=== PATIENT | female | born 1965 | race Caucasian/White ===

== ENCOUNTER 2021-12-31 07:57 | Outpatient (CLI) | payer BC, SELFPAY ==
--- NOTE | 2021-12-31 08:47 | ECG_ITS ---
Measurements Intervals [place] Rate: 53 P: 9 GA: 162 QRS: -13 QRSD: 97 T: 15 QT: 408 QTc: 385 Interpretive Statements SINUS BRADYCARDIA INCOMPLETE RIGHT BUNDLE BRANCH BLOCK BASELINE ARTIFACT- I, II, III, AVR, AVL, AVF BORDERLINE ECG Electronically Signed On 12-31-2021 9:42:45 TOOL GRINDER OPERATOR by Phillip Wallis D.O.
[2021-12-31 09:09] LABS: Basophils Percent Auto 0.5 % (0.2-1.2); Eosinophils Absolute Auto 0.1 K/mm3 (0-0.3); Eosinophils Percent Auto 1.4 % (0-4.4); Hemoglobin 12.2 g/dL (12.0-15.0); Immature Granulocyte Absolute 0.01 K/mm3 (0.00-0.031); Immature Granulocyte Percent A 0.2 % (0-0.5); Lymphocytes Absolute Auto 1.94 K/mm3 (0.9-3.2); Lymphocytes Percent Auto 46.4 % (18.3-44.2); Mean Corpuscular Hemoglobin 30.8 pg (26-34); Mean Corpuscular Volume 93.4 fl (80-100); Mean Platelet Volume 9.2 fl (7.4-10.4); Monocytes Absolute Auto 0.3 K/mm3 (0.1-0.6); Monocytes Percent Auto 7.7 % (2.6-8.5); Neutrophils Absolute Auto 1.8 K/mm3 (1.3-6.7); Neutrophils Percent Auto 43.8 % (45.5-73.1); Platelet Count Result 237 k/mm3 (150-375); Red Blood Count 3.96 M/mm3 (4.2-5.4); Red Cell Distribution Width 12.7 % (11.5-14.5); White Blood Count 4.2 K/mm3 (4.5-10.0)
[2021-12-31 09:19] LABS: Prothrombin Time 12.7 Seconds (11.1-14.7)
[2021-12-31 09:20] LABS: Partial Thromboplastin Time 24.6 SECONDS (22.3-36.8)
[2021-12-31 09:22] LABS: Alanine Aminotransferase 18 U/L (4-35); Albumin Level 4.5 g/dL (3.5-5.1); Alkaline Phosphatase 69 U/L (38-126); Anion Gap 4 mmol/L (8-16); Aspartate Amino Transferase 26 U/L (14-36); Bilirubin,Total 0.8 mg/dL (0.2-1.3); Blood Urea Nitrogen 8 mg/dL (7-17); Calcium 9.1 mg/dL (8.4-10.2); Carbon Dioxide 31 mmol/L (22-30); Chloride 105 mmol/L (98-107); Estimated Glomerular Filt Rate > 60; Glucose 102 mg/dL (65-110); Potassium 5.1 mmol/L (3.4-5.0); Sodium 140 mmol/L (137-145)
== END 2021-12-31 07:58 | disposition home or self-care (01) ==
LOC: ANHSURGERY 08:06
PROVIDERS: Visit Provider Urology
DX: Z01.818 Encounter for other preprocedural examination (principal); N81.4 Uterovaginal prolapse, unspecified
CPT/HCPCS: 36415; 80053; 85025; 85610; 85730; 86850; 86900; 86901; 87086; 87088; 93005

== ENCOUNTER 2022-01-13 01:34 | Day surgery (SDC) | payer BC, SELFPAY ==
[2021-12-31 07:54] VITALS: BMI 23.5
--- NOTE | 2021-12-31 07:54 | PC.NURSE ---
Report to the Outpatient Waiting Room, entrance under the green pavilion located off [facility], at time _0600_ on date _01/13/22_. OR Time: _0730_. - You will be asked a series of questions to screen for COVID 19 for your protection. - A mask is required within the hospital. - One visitor allowed at this time. Preoperative COVID Testing Requirements: NONE Patients may have clear liquids (water, carbonated beverages, clear teas, apple juice) until 3 hours prior to surgery (0430 AM) with a maximum of 20 ounces. - No food from midnight until time of surgery Take the following medications with a SIP of water the morning of surgery: _NONE__ Medications to discontinue per DR. TORRES - _JUICE PLUSE, CALCIUM 7 DAYS PRIOR TO SURGERY, LAST DOSE TO BE TAKEN ON 01/05/22__ Please no make-up, nail swedish, hairspray, perfume, deodorant, or body powder the day of surgery. No jewelry (including any body piercings) or valuables the day of surgery, leave them at home. Please take a shower or bath the night before, or the morning of, surgery with an antibacterial soap. Wear comfortable, loose fitting clothing. - Jewelry must be removed prior to entering the operating room. Rings and piercings that are not removed may be cut off. - The hospital will not accept responsibility for valuables. - Please leave all valuables, including medications, at home the day of surgery. If you are going home after surgery, a licensed warehouse delivery driver must drive you home. - NO public transportation without another adult. - We recommend that an adult stay with you for 24 hours following discharge. - We also recommend that you do not drive, make important decision, drink alcoholic beverages, or take any drugs that were not prescribed by your health care provider for at least 24 hours after your discharge time. Follow any additional instructions given to you from your surgeons. Instructions given to ___PT and asked if any additional questions and then verbalized understanding. Patient advised to call surgeon office or pre surgery nurse liaisonTHIAGO [phone] if any additional questions.
[2021-12-31 08:23] VITALS: BP 140/80; PULSE 60; RESP 18; TEMP 37; O2SAT 98
--- NOTE | 2022-01-05 19:35 | PM.IMHP ---
H&P: HPI History of Present Illness Date/Time: 01/05/22 19:35 56 yo with Uterine prolapse. NO cindi Chief Complaint: Uterine prolapse Review of Systems Review of Systems: All systems reviewed & are unremarkable except as noted in HPI and below PMFSH Family History Family History Grandparent Family history of coronary artery disease, Onset Age: 60 Mother Familial Alzheimer's disease of late onset Other Family history of malignant neoplasm of ovary Social History Social History Smoking status: Never smoker Second hand tobacco smoke exposure: No Alcohol intake: current Alcohol use details: STATES RARELY MAYBE 6 DRINKS/YEAR Substance use: never Substance use type: does not use Spiritual care concerns: No Meds Home Medications and Allergies Home Medications Medication Instructions Recorded Confirmed Type calcium 2 tab-cap HS 12/31/21 12/31/21 History nutritional supplement-fiber 4 ea HS 12/31/21 12/31/21 History [Juice Plus] Allergies Allergy/AdvReac Type Severity Reaction Status Date / Time No Known Allergies Allergy Mild Unverified 12/31/21 08:18 Exam Narrative: NAD A+O x3 [place] at 0 Assessment and Plan Assessment and plan (1) Uterine prolapse: Code(s): N81.4 - Uterovaginal prolapse, unspecified Status: Acute Assessment and Plan: robotic Sacral Colpopexy
--- NOTE | 2022-01-08 08:04 | PM.IMHP ---
H&P: HPI History of Present Illness Date/Time: 01/08/22 08:04 56-year-old female admitted for robotic supracervical hysterectomy and bilateral salpingectomy and possible bilateral salpingo-oophorectomy secondary to pain and prolapse. She had large children does not do a lot of heavy lifting but notice a bulging could see it. She consulted with Dr. Ortiz and he is scheduled to undertake sacral colpopexy 17 easily. Risks and benefits reviewed in great detail removal of the ovaries will be considered once inside. Chief Complaint: Uterine prolapse Review of Systems Review of Systems: All systems reviewed & are unremarkable except as noted in HPI and below [facility] Family History Family History Grandparent Family history of coronary artery disease, Onset Age: 60 Mother Familial Alzheimer's disease of late onset Other Family history of malignant neoplasm of ovary Social History Social History Smoking status: Never smoker Second hand tobacco smoke exposure: No Alcohol intake: current Alcohol use details: STATES RARELY MAYBE 6 DRINKS/YEAR Substance use: never Substance use type: does not use Spiritual care concerns: No Meds Home Medications and Allergies Home Medications Medication Instructions Recorded Confirmed Type calcium 2 tab-cap HS 12/31/21 12/31/21 History nutritional supplement-fiber 4 ea 12/31/21 12/31/21 History [Juice Plus] Allergies Allergy/AdvReac Type Severity Reaction Status Date / Time No Known Allergies Allergy Mild Unverified 12/31/21 08:18 Exam Const: General: no acute distress Eyes: General: appearance normal, both eyes and all related structures Neck: Neck: supple and no JVD Thyroid: thyroid normal Resp: Effort & Inspection: normal respiratory effort Auscultation: clear to auscultation bilaterally Cardio: Rate: regular rate Rhythm: regular rhythm GI: Inspection: non-distended GI Palp: Yes Soft to palpation, No Tenderness to palpation present (GI) and No Guarding due to palpation present (GI) Auscultation: normal bowel sounds : General: Yes bladder normal to palpation External Female Exam: normal external appearance Speculum Exam - Vagina: normal appearance of the vagina, normal vaginal discharge and No vaginal bleeding Speculum Exam - Cervix: normal appearance of the cervix (Second to third-degree prolapse is present.) and nontender Bimanual exam- vagina & uterus: bladder normal to palpation, No Cervical tenderness present and enlarged Bimanual Exam- Adnexa, other: normal adnexae OB/external & speculum: No vaginal bleeding Skin: General skin exam: no rashes or lesions noted Extrem: General: normal to inspection and no edema Psych: Mental Status: mental status grossly normal Affect: normal affect Assessment and Plan Additional Plan Impression: Uterine prolapse Plan: Robotic assisted supracervical hysterectomy with bilateral salpingectomies. Possible bilateral cyst salpingo-oophorectomy. Dr. Ortiz will proceed with repair of the pelvic prolapse
[2022-01-13] VITALS (15 sets, daily range): BP systolic 99–136; BP diastolic 51–89; PULSE 49–68; RESP 12–16; TEMP 36–36.3; O2SAT 94–100
--- NOTE | 2022-01-13 06:13 | WPDHPUPDATE1 ---
History and Physical Update Update Date/Time: 01/13/22 06:13 History and Physical has been reviewed, including an updated exam of the patient. There are NO changes in the patient's condition. Risks, benefits, and alternatives have been discussed and questions answered. Patient agrees to proceed with procedure.
--- NOTE | 2022-01-13 07:07 | P.PNAN_ITS ---
Anes - Initial Pre Proc Eval Procedure: Operation Date: 01/13/22 07:30 Proposed Procedures p Robotic Sacrocolpopexy - Justin Ortiz MD s Urethral Sling - Justin Ortiz MD s Robotic Assisted Supracervical Hysterectomy With Bilateral Salpingectomy, Possible Bilateral Salpingo-Oophorectomy - Lei Jarquin MD Date/Time: 01/13/22 07:07 Surgeon: Justin Ortiz MD Pre Op Diagnosis: Incom Uterovaginal prolapse, midline cystocele OAB Patient Data Age: 56 Gender: F Height: 1.68 m Weight: 66.3 kg Last Vital Signs Temp 37.0 C 12/31/21 08:23 Pulse 60 12/31/21 08:23 Resp 18 12/31/21 08:23 BP 140/80 12/31/21 08:23 Pulse Ox 98 12/31/21 08:23 Allergies Allergy/AdvReac Type Severity Reaction Status Date / Time No Known Allergies Allergy Mild Unverified 01/13/22 06:02 Home Medications Medication Instructions Recorded Confirmed Type calcium 2 tab-cap HS 12/31/21 01/13/22 History nutritional supplement-fiber 4 ea HS 12/31/21 01/13/22 History [Juice Plus] Patient hx anesthesia problems: none Family hx anesthesia problems: none Results Review: All pre-operative results and documents have been reviewed as part of the pre-operative evaluation. [facility] Surgical History Surgical History (Updated 01/13/22 @ 07:09 by Simon Bar DO) History of tubal ligation Family History Family History Grandparent Family history of coronary artery disease, Onset Age: 60 Mother Familial Alzheimer's disease of late onset Other Family history of malignant neoplasm of ovary Social History Social History Smoking status: Never smoker Second hand tobacco smoke exposure: No Alcohol intake: current Alcohol use details: STATES RARELY MAYBE 6 DRINKS/YEAR Substance use: never Substance use type: does not use Living arrangements: with family Spiritual care concerns: No Anes - Eval Final PreProcedure Day of Procedure 01/13/22 07:07 Patient weight: normal Heart: regular rate and rhythm Lungs: clear to auscultation and normal air movement Airway: Mallampati scale Neurological: alert and oriented Last oral intake: >/= 8 hours ASA classification: II Emergent: no Anesthetic plan: proceed Anesthesia type and monitoring: general ETT and standard monitoring Results Review: All pre-operative results and documents have been reviewed as part of the pre-operative evaluation. Informed Consent: The patient's anesthetic plan and its attendant risks and benefits were discussed with the patient/family/POA. Questions were solicited and answers provided to the satisfaction of the patient/family/POA.
--- NOTE | 2022-01-13 07:08 | WPDHPUPDATE1 ---
History and Physical Update Update Date/Time: 01/13/22 07:08 History and Physical has been reviewed, including an updated exam of the patient. There are NO changes in the patient's condition. Risks, benefits, and alternatives have been discussed and questions answered. Patient agrees to proceed with procedure.
[2022-01-13] MEDS: LACTATED RINGERS 1,000 ML 30 ML IV CONT ×2 (07:27→09:57)
[2022-01-13] MEDS: metroNIDAZOLE 500 MG/ISO 100ML 500 MG/100 ML BAG 100 MG IVPB (07:29)
[2022-01-13] MEDS: ceFAZolin 2 GM/D5W 50 ML 2 GM/50 ML BAG IVPB (07:42)
--- NOTE | 2022-01-13 08:20 | P.OP_ITS ---
Procedure Note - Detailed Date of Procedure 01/13/22 Pre-op Diagnosis Incom Uterovaginal prolapse, midline cystocele OAB Post-op Diagnosis same Procedure Performed Robotic supracervical hysterectomy salpingo-oophorectomy Surgeon Lei Jarquin MD Anesthesia general Indications Is a 56-year-old female with significant uterine prolapse Findings Small prolapsed uterus normal-appearing ovaries and tubes bilaterally Description of Procedure Patient was prepped and draped in the normal sterile fashion placed in the dorsal lithotomy position. Under excellent general trach anesthesia weighted speculum placed on posterior burned vagina. Anterior lip of the cervix grasped with a single-tooth tenaculum and the Ortiz's cannula inserted attached to the single-tooth to be used later for uterine manipulation. A 16 Turkmen catheter was placed in the bladder drained clear urine. The weighted speculum was removed and Dr. Ortiz proceeded to dock the robot. Please see his operative report for full details Once the robot had been docked. The left round ligament was grasped, burned, cut. Anteriorly bladder flap was formed by sharply dissecting the peritoneum and reflecting the bladder caudally from the uterus to the opposite round ligament which was clamped, burned, cut. Next the left infundibulopelvic structure was skeletonized clamped, burned, cut and brought to level of previously cut round ligament. In like fashion the infundibulopelvic structure on the right was skeletonized. This was clamped, burned, cut and brought to the level of previously cut round ligament. Next the left cardinal broad ligaments were serially skeletonized hugging the cervix and uterus clamping burning cutting until the uterine vessels could be seen on the left these were individually clamped, burned, cut. In like fashion the cardinal broad ligaments on the right were serially skeletonized hugging the cervix and uterus clamping burning cutting until the uterine vessels could be seen on the right these were individually clamped, burned, cut. At that point excellent he blanching was noted. A supracervical incision made and the uterus ovaries and tubes placed in an Endo-Catch. Blood loss at that point was [id number]. Dr. Hunter took over from there for the sacral colpopexy. Please refer to his operative report for full details blood loss to this point was 5cc and there were no complications up to this point Estimated Blood Loss 5 Drains No Packing No Pathology yes Complications No immediate complications Condition stable Disposition no change
--- NOTE | 2022-01-13 08:44 | SUR.OPER ---
sacrocolpopexy mesh [facility] Lot [id number], EXP 2023-12-16
--- NOTE | 2022-01-13 09:31 | SUR.OPER ---
uterus 33.0gm
--- NOTE | 2022-01-13 09:46 | W.PM.PROC2 ---
Procedure Note - Detailed Date of Procedure 01/13/22 Pre-op Diagnosis Incom Uterovaginal prolapse Post-op Diagnosis same Procedure Performed Robotic assisted laparoscopic sacral colpopexy Cystoscopy Surgeon Justin Ortiz MD Anesthesia general Indications This is a woman with uterine prolapse she has no stress incontinence by either history or urinary. She desires surgical correction. She is here for the above. She understands risks of bleeding, infection, diskitis, damage to surrounding organs, bowel injury, bowel obstruction, mesh related complications including exposure and extrusion, postoperative voiding dysfunction including incontinence and retention, risk of de Nathalie stress incontinence, need for ancillary procedures, dyspareunia, recurrence of prolapse, and other perioperative intraoperative postoperative complications. She agrees to proceed. Findings See below Description of Procedure She was correctly identified. Informed consent obtained. She from the operating room. She was given general anesthesia. She was given appropriate perioperative antibiotics. She was placed a low lithotomy position. Pressure points were padded. A time-out performed. I marked out the skin 3 fingerbreadths cephalad to the umbilicus. I anesthetized the skin. I incised the skin. I dissected down to the fascia. I grasped the fascia with Chica clamps. I entered the fascia sharply in a Feliz type technique. I placed sutures for later fascial closure. I placed a midline trocar. I examined the abdomen. There is no sign of any injury. Under direct vision I placed 2 additional trocars in the right upper quadrant and 2 additional trocars the left upper quadrant. She was placed in steep Trendelenburg. The robot was docked. Her solutions consultant completed their portion of the procedure. Please see that operative report for details. I then sat at the console. The Sizer in the vagina created plane on the anterior and posterior vaginal wall. I took great care not to injure the vagina, bladder, or rectum. I introduced the mesh into the abdomen. I sewed the anterior leaflet of mesh on the anterior vaginal wall. I sewed the posterior leaflet of mesh on the posterior vaginal wall. This was done with several sutures of 2 0 [place]-Mar[place]. I reflected the colon laterally. I opened the posterior peritoneum over the sacral promontory. I carried this into the cul-de-sac. I freed up the edges for later retroperitonealization. I located the anterior longitudinal ligament the sacrum. I cleaned off all fatty tissues. I then tensioned my mesh appropriately. I did a vaginal exam the bedside. I assured prolapse reduction without undue tension. I then sewed the proximal leaflet of mesh onto the anterior longitudinal ligament of the sacrum with several sutures of 2 0 [place]-Marco. I then used a 2 0 Monocryl to completely and meticulously retroperitonealized all mesh. I allowed the colon to go back to its normal anatomic location. There is no sign of any impingement. The specimen was then removed. All ports removed. Additional sutures were placed and the Fascial sutures were tied down. Skin was closed with Monocryl and surgical glue. I then performed cystoscopy. There was excellent prolapse support without undue tension. On cystoscopy There was no tumors or surgical artifact. Both ureters were seen to excrete clear yellow urine. There is no surgical artifact in the bladder or urethra. I cut the excess sling material. Close incision with glue. She was awakened and transferred to PACU in stable condition. Implants Sacral colpopexy mesh Estimated Blood Loss 5 Packing No Pathology none sent Complications No immediate complications Condition stable Disposition PACU
[2022-01-13] MEDS: fentaNYL CITRATE INJ (*CRX) 100 MCG/2 ML VIAL 25 MCG IV PUSH ×4 (10:11→10:40)
[2022-01-13] MEDS: oxyCODONE HCL (*CRX) 5 MG TAB IR PO (13:06)
== END 2022-01-13 14:10 | disposition home or self-care (01) ==
PROVIDERS: Obstetrics & Gynecology; PCP Physician Assistant; Visit Provider Urology
PROC: (CPT 57425; principal; 2022-01-13 07:30)
PROC: 0UT94ZZ Resection of Uterus, Percutaneous Endoscopic Approach (ICD-10-PCS; CPT 57425; 2022-01-13 07:30)
DX: N81.2 Incomplete uterovaginal prolapse (principal); N32.81 Overactive bladder; N73.6 Female pelvic peritoneal adhesions (postinfective)
CPT/HCPCS: 57425; 58542; S2900 ×2; 88307; A9270; C1781; C9290; J0690; J1100; J1170; J2250; J2405; J2704; J3010; J7030; J7120

== ENCOUNTER 2023-10-15 01:13 | Day surgery (SDC) | payer BC, SELFPAY ==
[2023-09-30 08:25] VITALS: BMI 22.6
--- NOTE | 2023-10-13 12:46 | SUR.PREOP ---
Patient called regarding upcoming procedure. Reviewed preop instructions, appointment times, and procedure prep.
[2023-10-15 06:20] VITALS: BP 108/79; PULSE 84; RESP 16; TEMP 36; O2SAT 100; BMI 22.1
[2023-10-15] MEDS: LACTATED RINGERS 1,000 ML 150 ML IV CONT (06:39)
--- NOTE | 2023-10-15 07:31 | PM.IMHP ---
H&P: HPI History of Present Illness Date/Time: 10/15/23 07:31 Chief Complaint: Screening for colorectal cancer Narrative: This is a 58-year-old woman who presents for colonoscopy. She has never had a colonoscopy before. She denies family history of colon cancer. She denies any hematochezia or melena. Review of Systems Review of Systems: All systems reviewed & are unremarkable except as noted in HPI and below Constitutional: Constitutional: Denies chills, Denies fever(s), Denies headache(s) and Denies weight loss Eyes: Eyes: Denies change in vision ENT: Denies dizziness, Denies headache(s), Denies neck mass and Denies throat swelling Cardiovascular: Cardiovascular: Denies chest pain, Denies lightheadedness and Denies dyspnea Respiratory: Respiratory: Denies cough, Denies dyspnea and Denies wheezing Gastrointestinal: Gastrointestinal: Denies abdominal pain, Denies change in bowel habits, Denies nausea and Denies vomiting Genitourinary: Genitourinary: Denies hematuria and Denies dysuria Musculoskeletal: Musculoskeletal: Reports as per HPI Integumentary/Breasts: Skin/Breast: Reports as per HPI Neurologic: Denies dizziness and Denies headache(s) Allergic/Immunologic: Allergic/Immunologic: Denies throat swelling and Denies wheezing [facility] Surgical History Surgical History (Updated 01/13/22 @ 07:09 by Simon Bar DO) History of tubal ligation Family History Family History Grandparent Family history of coronary artery disease, Onset Age: 60 Mother Familial Alzheimer's disease of late onset Other Family history of malignant neoplasm of ovary Social History Social History Smoking status: Never smoker Second hand tobacco smoke exposure: No Alcohol intake: current Alcohol use details: rare occasions Substance use: never Substance use type: does not use Living arrangements: with family Spiritual care concerns: No Meds Home Medications and Allergies Home Medications Medication Instructions Recorded Confirmed Type calcium 2 tab-cap PO HS 12/31/21 10/15/23 History nutritional supplement-fiber oral 4 ea PO HS 12/31/21 10/15/23 History liquid Allergies Allergy/AdvReac Type Severity Reaction Status Date / Time No Known Allergies Allergy Mild Verified 10/15/23 06:29 Vital Signs Vital Signs - 24 hr 10/15/23 06:20 Temperature 36.0 C L Pulse Rate 84 Respiratory Rate 16 Blood Pressure 108/79 Pulse Oximetry 100 Oxygen Delivery Room Air Exam Const: General: no acute distress and alert Orientation/consciousness: patient oriented x3 HENMT: Head: normocephalic and atraumatic Ears: hearing grossly normal bilaterally Face/Nose/Sinus: Normal nares present Mouth: Yes Normal oral and palatal mucosa present Eyes: Periorbital: periorbital findings normal Sclera: sclerae normal EOM: EOMs intact bilaterally Neck: Neck: normal visual inspection, no lymphadenopathy and trachea midline Chest: Chest palpation & inspection: normal inspection of the chest Resp: Effort & Inspection: normal respiratory effort Auscultation: clear to auscultation bilaterally Cardio: Jugular venous distension: no JVD Rate: regular rate Rhythm: regular rhythm Heart sounds: S1 normal heart sound present and S2 normal heart sound present Peripheral pulses: Peripheral pulses 2+ throughout GI: Inspection: normal to inspection GI Palp: Yes Soft to palpation, No Tenderness to palpation present (GI), No Guarding due to palpation present (GI) and No Rebound tenderness present Percussion: Yes normal to percussion Auscultation: normal bowel sounds : General: Yes no CVA tenderness Back/Spine/Pelvis: Back: no CVA tenderness Neuro: General: patient oriented x3, no focal motor deficits and CN's II-XI intact bilaterally Cognition (Neuro): normal cognition Speec
--- NOTE | 2023-10-15 07:45 | P.PNAN_ITS ---
Anes - Initial Pre Proc Eval Procedure: Operation Date: 10/15/23 07:30 Proposed Procedures p Screening Colonoscopy - Magno Taveras DO Date/Time: 10/15/23 07:45 Surgeon: Magno Taveras DO Pre Op Diagnosis: neoplasm screening Patient Data Age: 58 Gender: F Height: 1.68 m Weight: 62.2 kg Last Vital Signs Temp 96.8 F L 10/15/23 06:20 Pulse 84 10/15/23 06:20 Resp 16 10/15/23 06:20 BP 108/79 10/15/23 06:20 Pulse Ox 100 10/15/23 06:20 O2 Del Method Room Air 10/15/23 06:20 Allergies Allergy/AdvReac Type Severity Reaction Status Date / Time No Known Allergies Allergy Mild Verified 10/15/23 06:29 Home Medications Medication Instructions Recorded Confirmed Type calcium 2 tab-cap PO HS 12/31/21 10/15/23 History nutritional supplement-fiber oral 4 ea PO HS 12/31/21 10/15/23 History liquid Patient hx anesthesia problems: none Family hx anesthesia problems: none Results Review: All pre-operative results and documents have been reviewed as part of the pre- operative evaluation. [facility] Surgical History Surgical History (Updated 01/13/22 @ 07:09 by Simon Bar DO) History of tubal ligation Family History Family History Grandparent Family history of coronary artery disease, Onset Age: 60 Mother Familial Alzheimer's disease of late onset Other Family history of malignant neoplasm of ovary Social History Social History Smoking status: Never smoker Second hand tobacco smoke exposure: No Alcohol intake: current Alcohol use details: rare occasions Substance use: never Substance use type: does not use Living arrangements: with family Spiritual care concerns: No Anes - Eval Final PreProcedure Day of Procedure 10/15/23 07:45 Patient weight: overweight Heart: regular rate and rhythm Lungs: clear to auscultation Airway: Mallampati scale class II Neurological: alert and oriented Last oral intake: >/= 8 hours ASA classification: II Emergent: no Anesthetic plan: proceed Anesthesia type and monitoring: general GIVS and standard monitoring Results Review: All pre-operative results and documents have been reviewed as part of the pre- operative evaluation. Informed Consent: The patient's anesthetic plan and its attendant risks and benefits were discussed with the patient/family/POA. Questions were solicited and answers provided to the satisfaction of the patient/family/POA.
[2023-10-15 07:53] VITALS: BP 84/56; PULSE 67; RESP 16; O2SAT 95
[2023-10-15 08:03] VITALS: BP 97/57; PULSE 68; RESP 17; O2SAT 98
[2023-10-15 08:13] VITALS: BP 106/73; PULSE 59; RESP 19; O2SAT 100
== END 2023-10-15 08:25 | disposition home or self-care (01) ==
PROVIDERS: PCP Physician Assistant; Visit Provider Surgery
PROC: 0DJD8ZZ Inspection of Lower Intestinal Tract, Via Natural or Artificial Opening Endoscopic (ICD-10-PCS; CPT 45378; principal; 2023-10-15 07:30)
DX: Z12.11 Encounter for screening for malignant neoplasm of colon (principal); K57.30 Diverticulosis of large intestine without perforation or abscess without bleeding; Z82.49 Family history of ischemic heart disease and other diseases of the circulatory system; Z80.41 Family history of malignant neoplasm of ovary
CPT/HCPCS: 45378; J2704; J7120